=== PATIENT | male | born 1945 | race Asian ===

== ENCOUNTER 2024-11-07 06:55 | Emergency (ER) | payer OTHER, SELFPAY ==
[2024-11-07 07:07] VITALS: BP 146/80
--- NOTE | 2024-11-07 07:41 | ED.GENMED ---
History of Present Illness
<HOWIE Antoine - Last Filed: 11/07/24 11:28>
General
Chief Complaint: Fall
Source: patient
Exam Limitations: none
Time Seen by Provider: 11/07/24 07:24
Nursing documentation reviewed up to this point in time: agreed with
History of Present Illness
History of Present Illness:
Patient is a 79-year-old male brought by family. Patient was recently visiting [place] reports about 12 hours ago he was in an airport on his way back to the [facility] when he slipped and fell in the bathroom stall. He did hit his head he try to
get up and fell again. He does complain of a headache since but in addition patient started with nausea vomiting diarrhea. He has had greater than 16 episodes of diarrhea as per family and is vomited 3 times. He is nauseous he complains of
soreness to his back neck and thighs. He reports because of the soreness he has difficulty getting up and off the toilet. He however has been ambulating and bearing weight. He denies any fevers. Denies any chest pain shortness of breath. No
other sick contacts presently in family.
Pt as per son has been on Augmentin for past several tday (was placed on medicine for cough while in [facility])
Past History
<HOWIE Antoine - Last Filed: 11/07/24 11:28>
Past History
ED Past Medical History: CAD, Cancer (Prostate just watching), HTN, Hypercholesterolemia and SC
ED Past Surgical History: Cardiac (Stents ), Orthopedic (Lumbar spine surgery, Right arm metal plate) and Other (Cataracts, )
Social History
Tobacco: Non-smoker
Alcohol: None
Drug: None
Personal:
Living: with family
Employment: Other
Family History
Family History: Unable to obtain
Review of Systems
<HOWIE Antoine - Last Filed: 11/07/24 11:28>
Review of Systems
Allergies reviewed?: Yes
Other source history: family
All Other Systems: ROS reviewed and negative except as documented in HPI and ROS
Constitutional: Denies fever, fatigue or chills
EENT: Reports no symptoms
Respiratory: Reports no symptoms
Cardiac: Reports no symptoms; Denies syncope
ABD/GI: Reports nausea, vomiting and diarrhea
: Reports no symptoms
Musculoskeletal: Reports other (low back pain, thighs /hips feel sore )
Skin: Reports no symptoms
Neurological: Reports headache
Psychiatric: Reports no symptoms
Phy Exam
<HOWIE Antoine - Last Filed: 11/07/24 11:28>
General Physical Exam
General Presentation: no apparent distress
General age: appears stated age
General Skin: warm and dry
General Habitus: elderly
General Hydration: dry mucous membranes
Cardiovascular Exam
Cardiovascular Exam: regular rate/rhythm, no murmur and normal peripheral pulses
Pulmonary Exam
Pulmonary Exam: lungs clear and no respiratory distress
Gastrointestinal Exam
Gastrointestinal Exam: non tender and soft
Neurological Exam
Neurological Exam: alert and oriented x3
Musculoskeletal Exam
Musculoskeletal Exam: full ROM and other (Normal inspection to bilateral legs no obvious swelling full range of motion to both hips patient lifting legs off the stretcher ambulatory weightbearing normally no pain with full range of motion to hips no
head injury no bony neck tenderness )
Skin Exam
Skin Exam: normal color and warm/dry
Psychiatric Exam
Psychiatric Exam: normal mood/affect
Course
<HOWIE Antoine - Last Filed: 11/07/24 11:28>
Orders/Labs/Results
Orders:
Orders
11/07/24 07:42
CT Cervical Spine W/o Iv Contr Urgent
Comment:
Reason For Exam: trauma
CT Head W/o Iv Contrast Urgent
Comment:
Reason For Exam: trauma
Lumbar Spine Complete, 4 View [CR Lumbar Spine Comp Min 4 Vw*] Urgent
Comment:
Reason For Exam: trauma
Pelvis, 1 or 2 Views CR [CR Pelvis - 1 Or 2 Views ] Urgent
Comment:
Reason For Exam: trauma
11/07/24 07:43
0.9% Sodium Chloride 1000 ml [Nss] 1,000 ml IV BOLUS
Ondansetron Injectable [Zofran] 4 mg IV NOW STA
11/07/24 07:50
Electrocardiogram (*1) Stat
Reason for Study: Other
Other Reason for Exam: chest pain
EKG- Treatment ONCE
11/07/24 07:51
Complete Blood Count/With Diff Urgent
Comprehensive Metabolic Panel Urgent
11/07/24 08:20
C DIFF [C difficile Antigen & Toxins] Urgent
SERGIO Source: Feces/Stool
Specimen Description:
Date Specimen was Collected: 11/07/24
Time Specimen was Collected: 08:13
Norovirus by PCR Urgent
SERGIO Source: Feces/Stool
Specimen Description:
Date Specimen was Collected: 11/07/24
Time Specimen was Collected: 08:13
Stool Culture Urgent
SERGIO Source: Feces/Stool
Specimen Description:
Date Specimen was Collected: 11/07/24
Time Specimen was Collected: 08:13
11/07/24 09:45
Hip, Left 2-3 Views [CR Hip - LT w/wo Pel 2-3 Vw*] Urgent
Comment:
Reason For Exam: pain
Include a pelvis x-ray?: Yes
11/07/24 10:26
Chest [CR Chest - 2 Views ] Urgent
Comment:
Reason For Exam: cough
Abnormal Lab Results
11/07/24
07:51
Hct 53.2 H %
(39.0-52.0)
MCHC 30.6 L g/dL
(33.0-37.0)
RDW 15.9 H %
(11.5-14.5)
Plt Count 653 H 10^3/uL
(130-400)
Absolute Neuts (auto) 8.3 H 10^3/uL
(1.4-6.5)
Absolute Lymphs (auto) 0.9 L 10^3/uL
(1.2-3.4)
Neutrophils % 81.3 H %
(42.2-75.2)
Lymphocytes % 9.1 L %
(20.5-51.1)
Chloride 108 H mmol/L
(98-107)
Carbon Dioxide 21 L mmol/L
(22-30)
BUN 24 H mg/dl
(9-20)
11/07/24 07:51
11/07/24 07:51
Vital Signs
Initial and Last Documented VS:
Initial Vital Signs
Temp Pulse Resp BP Pulse Ox
36.4 C 81 18 146/80 95
11/07/24 07:07 11/07/24 07:07 11/07/24 07:07 11/07/24 07:07 11/07/24 07:07
Last Documented Vital Signs
Temp Pulse Resp BP Pulse Ox
36.4 C 74 26 150/71 95
11/07/24 07:07 11/07/24 07:49 11/07/24 07:49 11/07/24 07:49 11/07/24 07:07
Nutritional Services Director consulted with Physician
Nutritional Services Director consulted with physician?: Yes
Name of Physician Consulted: Susie
<Rashawn Richards MD - Last Filed: 11/07/24 11:22>
Orders/Labs/Results
Orders:
Orders
11/07/24 07:42
CT Cervical Spine W/o Iv Contr Urgent
Comment:
Reason For Exam: trauma
CT Head W/o Iv Contrast Urgent
Comment:
Reason For Exam: trauma
Lumbar Spine Complete, 4 View [CR Lumbar Spine Comp Min 4 Vw*] Urgent
Comment:
Reason For Exam: trauma
Pelvis, 1 or 2 Views CR [CR Pelvis - 1 Or 2 Views ] Urgent
Comment:
Reason For Exam: trauma
11/07/24 07:43
0.9% Sodium Chloride 1000 ml [Nss] 1,000 ml IV BOLUS
Ondansetron Injectable [Zofran] 4 mg IV NOW STA
11/07/24 07:50
Electrocardiogram (*1) Stat
Reason for Study: Other
Other Reason for Exam: chest pain
EKG- Treatment ONCE
11/07/24 07:51
Complete Blood Count/With Diff Urgent
Comprehensive Metabolic Panel Urgent
11/07/24 08:20
C DIFF [C difficile Antigen & Toxins] Urgent
SERGIO Source: Feces/Stool
Specimen Description:
Date Specimen was Collected: 11/07/24
Time Specimen was Collected: 08:13
Norovirus by PCR Urgent
SERGIO Source: Feces/Stool
Specimen Description:
Date Specimen was Collected: 11/07/24
Time Specimen was Collected: 08:13
Stool Culture Urgent
SERGIO Source: Feces/Stool
Specimen Description:
Date Specimen was Collected: 11/07/24
Time Specimen was Collected: 08:13
11/07/24 09:45
Hip, Left 2-3 Views [CR Hip - LT w/wo Pel 2-3 Vw*] Urgent
Comment:
Reason For Exam: pain
Include a pelvis x-ray?: Yes
11/07/24 10:26
Chest [CR Chest - 2 Views ] Urgent
Comment:
Reason For Exam: cough
Abnormal Lab Results
11/07/24
07:51
Hct 53.2 H %
(39.0-52.0)
MCHC 30.6 L g/dL
(33.0-37.0)
RDW 15.9 H %
(11.5-14.5)
Plt Count 653 H 10^3/uL
(130-400)
Absolute Neuts (auto) 8.3 H 10^3/uL
(1.4-6.5)
Absolute Lymphs (auto) 0.9 L 10^3/uL
(1.2-3.4)
Neutrophils % 81.3 H %
(42.2-75.2)
Lymphocytes % 9.1 L %
(20.5-51.1)
Chloride 108 H mmol/L
(98-107)
Carbon Dioxide 21 L mmol/L
(22-30)
BUN 24 H mg/dl
(9-20)
11/07/24 07:51
11/07/24 07:51
Vital Signs
Initial and Last Documented VS:
Initial Vital Signs
Temp Pulse Resp BP Pulse Ox
36.4 C 81 18 146/80 95
11/07/24 07:07 11/07/24 07:07 11/07/24 07:07 11/07/24 07:07 11/07/24 07:07
Last Documented Vital Signs
Temp Pulse Resp BP Pulse Ox
36.4 C 74 26 150/71 95
11/07/24 07:07 11/07/24 07:49 11/07/24 07:49 11/07/24 07:49 11/07/24 07:07
<HOWIE Antoine - Last Filed: 11/07/24 11:28>
MDM/Problems Addressed
MDM/Problems Addressed:
Symptoms are consistent with norovirus, viral syndrome. Patient has had several episodes of diarrhea here but feeling better after Zofran no nausea vomiting. Patient is nontachycardic he is well-appearing he is afebrile labs reviewed white count
is normal at 10.3, BUN minimally elevated at 24 but normal creatinine.
Patient as documented recently came from [place] and while in the airport did have a fall. CT head and cervical spine were negative. Patient does complain of mild soreness to his legs including left thigh area however good range of motion no obvious
swelling strong distal pulses x-rays are negative. He has been weightbearing back and forth to the bathroom here in no acute distress likely contusion. Son reported that patient was questioning on the documented while in [place] for cough however
lungs are clear not hypoxic no complaints of cough no acute findings on chest x-ray here in the ER.
Stool culture was obtained and patient does have norovirus however he is nontoxic hydrated here feels well enough to go home family at bedside. Will DC with Zofran. Case d/ c with ED attending.
<HOWIE Antoine - Last Filed: 11/07/24 11:28>
*Critical Care Note
Total Time (30-74mins, 75-104mins- exclusive of procedures): Not Applicable
ED Attending Note
<HOWIE Antoine - Last Filed: 11/07/24 11:28>
-
Portions of this chart may have been created with voice recognition software.� Occasional wrong word or��sound alike� substitutions may have occurred due to the inherent limitations of voice recognition software.
<Rashawn Richards MD - Last Filed: 11/07/24 11:22>
ED Attending Note
Patient seen and examined by attending physician: Yes
ED Attending Note:
I have seen and evaluated the patient with a [id number] encounter. I have spoken to the advance practicer provider and involved in the medical history, the physical exam, medical decision making.
Evaluation and management service: agree unless noted differently below.
Results interpretation: agree unless noted differently below.
Focused HPI: 79-year-old male presents to the ER with his son for evaluation after a fall. Patient had a recent trip to [facility] and when he was in the airport there he slipped and fell onto his left hip. He did not his head there was question of
loss of consciousness. He has had some soreness in the left hip. He was able to get the flight home and has been ambulatory since the fall but has been having mild headache as well as pain into his left hip which prompted trip to the emergency
room. In addition to fall patient has been dealing with nausea, vomiting, diarrhea since his trip to [facility]. No abdominal pain. He has also had mild cough. Apparently has been on Augmentin for the past few days for his cough.
Physical exam: Awake alert oriented and not in distress. Vital signs normal. He has some mild lateral tenderness of the hip but allows for full range of motion of the hip and is able to weight-bear here in the emergency room without issue. His
head is normocephalic atraumatic. Abdomen nontender.
Medical Decision Makin-year-old male presents to the emergency room for evaluation after a fall. Hit his head, questionable loss of consciousness. Also injured his left hip. On top of all this has been dealing with cough and
vomiting/diarrhea. Labs were sent off including a CBC which was unremarkable, CMP which shows marginal metabolic acidosis likely from GI losses. Mildly elevated BUN likely mild dehydration. He was given IV fluids. Chest x-ray shows no pneumonia.
X-ray of the hip and pelvis negative for any acute fracture, x-ray of the lumbar spine negative for any acute fracture. CT head and cervical spine negative for any acute posttraumatic pathology. He was positive for norovirus here which is likely
etiology of his GI issues. Suspect hip pain is from an acute contusion�very low suspicion for occult fracture as he is weightbearing here in the ER and has minimal pain through range of motion in my judgment no indication for CT of the hip at this
point. Stable for discharge we spoke about supportive care for hip contusion as well as for norovirus, spoke about infection control precautions, hydration. All questions answered.
Discharge Plan
Departure
Patient Disposition: Home (Routine Discharge)
Date of Disposition: 11/07/24
Time of Disposition: :22
Patient with high blood pressure during this ER visit?: Yes
Condition: Fair
Covid-19: Not Applicable
Discharge Problem:
Norovirus, Contusion
Instructions: Diarrhea in teens and adults, Nausea and Vomiting, Adult (DC), Contusion (DC)
Prescriptions:
New
ondansetron 4 mg tablet,disintegrating
4 mg PO Q8H PRN (Reason: nausea and vomiting) Qty: 10 0RF
No Action
losartan 25 MG tablet
25 mg PO DAILY
cetirizine 10 mg Tablet
10 mg PO DAILY
hydrocodone-acetaminophen 5-325 mg Tablet
1 tab PO BID PRN (Reason: pain)
Rx Instructions:
unknown how often PRN
docusate sodium [Colace] 100 mg Capsule
100 mg PO DAILY
rosuvastatin 5 mg Tablet
5 mg PO DAILY
tizanidine 2 mg Capsule
2 mg PO 1XD
Referrals:
Matias Woods MD [Family Provider] -
Activity Restrictions/Additional Instructions:
As discussed you have norovirus: be sure to increase fluids. A prescription for nausea medicine was sent to your pharmacy take as directed. Ice the leg/hip area .
you may take Tylenol for discomfort. Follow-up with family doctor in next of days for reevaluation return if any worsening of symptoms
Interventions
Interventions:
*Risk Screen - Suicide Last Done: 11/07/24 09:08
*General Assessment Last Done: 11/07/24 08:05
*Neglect/Abuse Screening Last Done: 11/07/24 08:05
ED- Fall Risk Assessment Last Done: 11/07/24 08:05
*ED COVID-19 Vaccine History Last Done: 11/07/24 08:05
YG-[id number] Assessment Last Done: 11/07/24 08:05
ED-Musculoskeletal Assessment Last Done: 11/07/24 08:05
ED- Neurological Assessment Last Done: 11/07/24 08:05
Discharge Date and Time
Print Language: IRISH
[2024-11-07 07:49] VITALS: BP 150/71
[2024-11-07] MEDS: ZOFRAN 4 MG IV (07:53)
[2024-11-07] MEDS: NSS 1000 IV (07:53)
[2024-11-07 08:15] LABS: % Basophils 0.5 % (0-2); % Eosinophils 2.6 % (0-6); % Immature Granulocytes 0.4 % (0-0.5); % Lymphocytes 9.1 % (20.5-51.1); % Monocytes 6.1 % (1.7-9.3); % Neutrophils 81.3 % (42.2-75.2); Absolute Basophils 0.1 10^3/uL (0-0.2); Absolute Eosinophils 0.3 10^3/uL (0-0.7); Absolute Lymphocytes 0.9 10^3/uL (1.2-3.4); Absolute Monocytes 0.6 10^3/uL (0.1-0.6); Absolute Neutrophils 8.3 10^3/uL (1.4-6.5); Hematocrit 53.2 % (39.0-52.0); Hemoglobin 16.3 g/dL (13.0-18.0); Mean Corp Hgb Conc. 30.6 g/dL (33.0-37.0); Mean Corpuscular Volume 88.2 fL (80.0-94.0); Mean Platelet Volume 10.2 fL (7.4-10.4); Nucleated Red Blood Cells % 0 % (-); Platelet Count 653 10^3/uL (130-400); Red Blood Cell Count 6.03 10^6/uL (4.70-6.10); Red Cell Dist. Width 15.9 % (11.5-14.5); White Blood Cell Count 10.3 10^3/uL (4.8-10.8)
[2024-11-07 08:18] LABS: ALT (SGPT) 43 U/L (0-50); AST (SGOT) 40 U/L (17-59); Albumin 3.8 g/dl (3.5-5.0); Alkaline Phosphatase 109 U/L (38-126); Blood Urea Nitrogen 24 mg/dl (9-20); Calcium 9.3 mg/dl (8.4-10.2); Carbon Dioxide 21 mmol/L (22-30); Chloride 108 mmol/L (98-107); Glucose 90 mg/dl (70-99); Potassium 3.8 mmol/L (3.5-5.1); Sodium 141 mmol/L (135-145); Total Bilirubin 0.5 mg/dl (0.2-1.3); Total Protein 6.3 g/dl (6.3-8.2); eGFR > 60.00
== END 2024-11-07 11:56 | disposition home or self-care (01) ==
LOC: EMR 06:55
PROVIDERS: Nurse Practitioner; EMERGENCY PHYSICIAN Emergency Medicine; FAMILY PHYSICIAN Internal Medicine
DX: A08.11 Acute gastroenteropathy due to Norwalk agent (principal); S70.02XA Contusion of left hip, initial encounter; R51.9 Headache, unspecified; R11.2 Nausea with vomiting, unspecified; R19.7 Diarrhea, unspecified; R05.9 Cough, unspecified; W01.0XXA Fall on same level from slipping, tripping and stumbling without subsequent striking against object, initial encounter; Y92.520 Airport as the place of occurrence of the external cause; I25.10 Atherosclerotic heart disease of native coronary artery without angina pectoris; I10 Essential (primary) hypertension; E78.00 Pure hypercholesterolemia, unspecified; I25.2 Old myocardial infarction; Z95.5 Presence of coronary angioplasty implant and graft; Z85.46 Personal history of malignant neoplasm of prostate
CPT/HCPCS: 99285; 96374; 96361; 70450; 71046; 72110; 72125; 72170; 73502; 80053; 85025; 87045; 87046; 87324; 87427; 87449; 87798; 93005